=== PATIENT | female | born 1945 | race Caucasian/White ===

== ENCOUNTER 2022-03-24 07:51 | Outpatient (REF) | payer MEDICARE, SELFPAY ==
[2022-03-24 11:23] LABS: Hematocrit 39.1 % (37.0-47.0); Hemoglobin 12.8 g/dl (12.0-16.0); Mean Corpuscular HGB Conc 32.7 g/dl (31.0-35.0); Mean Corpuscular Hemoglobin 30.9 pg (27.0-33.0); Mean Corpuscular Volume 94.4 fL (80.0-98.0); Mean Platelet Volume 10.5 fL (9.4-12.3); Platelet Count 172 X10*3/uL (160-400); Red Blood Count 4.14 X10*6/uL (4.20-5.50); Red Cell Distribution Width 13.6 % (11.0-16.0)
[2022-03-24 11:38] LABS: Alanine Aminotransferase 22 U/L (0-31); Albumin Level 4.2 g/dL (3.5-5.0); Alkaline Phosphatase 78 U/L (39-117); Anion Gap 12 (12-20); Aspartate Amino Transferase 24 U/L (5-31); Bilirubin Total 0.4 mg/dL (0.0-1.0); Blood Urea Nitrogen 11 mg/dL (9-16); Calcium 10.6 mg/dL (8.4-10.2); Carbon Dioxide 30 mmol/L (22-29); Chloride 107 mmol/L (96-108); Cholesterol 171 mg/dL; Estimated Glomerular Filt Rate > 60; Glucose Random 102 mg/dL (60-115); HDL Cholesterol 48 mg/dL; LDL Cholesterol Calculated 104 mg/dl; Potassium 5.5 mmol/L (3.3-5.1); Sodium 143 mmol/L (135-145); Total Protein 6.5 g/dL (6.5-8.0); Triglycerides 96 mg/dL
[2022-03-24 11:49] LABS: WBC ABN SCTR FOR CBC 1
[2022-03-24 11:52] LABS: White Blood Count 54.9 X10*3/uL (4.8-10.8)
[2022-03-24 11:56] LABS: Band Neutrophils Percent 0 % (3-5); Lymphocytes Absolute Manual 51.1 X10*3/uL (1.2-4.9); Lymphocytes Percent Manual 93 % (20-40); Monocytes Absolute Manual 0.5 X10*3/uL (0.1-1.2); Monocytes Percent Manual 1 % (2-11); Neutrophils Absolute Manual 3.3 X10*3/uL (2.0-8.3); Neutrophils Percent Manual 6 % (45-73)
[2022-03-24 12:01] LABS: Platelet Estimate NORMAL (NORMAL); RBC Morphology NORMAL
[2022-03-24 12:02] LABS: Large Platelet PRESENT; Platelet Morphology Comment NOTED; Smudge Cells PRESENT
== END 2022-03-24 07:52 | disposition home or self-care (01) ==
LOC: HO.MANLDS 07:51
PROVIDERS: Visit Provider Physician Assistant
DX: I10 Essential (primary) hypertension (principal); E78.2 Mixed hyperlipidemia
CPT/HCPCS: 36415; 80053; 80061; 85007; 85027

== ENCOUNTER 2023-04-30 09:03 | Outpatient (REF) | payer MEDICARE, SELFPAY ==
[2023-04-30 13:54] LABS: Hematocrit 39.8 % (37.0-47.0); Hemoglobin 12.5 g/dl (12.0-16.0); Mean Corpuscular HGB Conc 31.4 g/dl (31.0-35.0); Mean Corpuscular Volume 95.4 fL (80.0-98.0); Platelet Count 171 X10*3/uL (160-400); Red Blood Count 4.17 X10*6/uL (4.20-5.50); Red Cell Distribution Width 13.5 % (11.0-16.0)
[2023-04-30 13:58] LABS: WBC ABN SCTR FOR CBC 1
[2023-04-30 14:00] LABS: White Blood Count 59.1 X10*3/uL (4.8-10.8)
[2023-04-30 14:06] LABS: Alanine Aminotransferase 17 U/L (0-31); Albumin Level 4.3 g/dL (3.5-5.0); Alkaline Phosphatase 75 U/L (39-117); Anion Gap 13 (12-20); Aspartate Amino Transferase 22 U/L (5-31); Bilirubin Total 0.4 mg/dL (0.0-1.0); Blood Urea Nitrogen 12 mg/dL (9-16); Calcium 10.7 mg/dL (8.4-10.2); Carbon Dioxide 26 mmol/L (22-29); Chloride 105 mmol/L (96-108); Cholesterol 187 mg/dL (<200); Estimated Glomerular Filt Rate > 60; Glucose Random 92 mg/dL (60-115); HDL Cholesterol 52 mg/dL (>40); LDL Cholesterol Calculated 112 mg/dL (<100); Potassium 4.1 mmol/L (3.3-5.1); Sodium 140 mmol/L (135-145); Total Protein 6.8 g/dL (6.5-8.0); Triglycerides 117 mg/dL (<150)
[2023-04-30 14:33] LABS: Folate 7.6 ng/mL (> or = 4.0); Vitamin B12 1059 pg/mL (200-900)
[2023-04-30 14:46] LABS: Band Neutrophils Percent 0 % (3-5); Eosinophils Absolute Manual 0.6 X10*3/uL (0.0-0.4); Eosinophils Percent Manual 1 % (0-4); Lymphocytes Absolute Manual 54.4 X10*3/uL (1.2-4.9); Lymphocytes Percent Manual 92 % (20-40); Monocytes Absolute Manual 0.6 X10*3/uL (0.1-1.2); Monocytes Percent Manual 1 % (2-11); Neutrophils Absolute Manual 3.5 X10*3/uL (2.0-8.3); Neutrophils Percent Manual 6 % (45-73)
[2023-04-30 14:47] LABS: Platelet Estimate NORMAL (NORMAL); Platelet Morphology Comment NORMAL; RBC Morphology NOTED
[2023-04-30 14:48] LABS: Smudge Cells PRESENT
== END 2023-04-30 09:04 | disposition home or self-care (01) ==
LOC: HO.MANLDS 09:03
PROVIDERS: Visit Provider Physician Assistant
DX: E11.9 Type 2 diabetes mellitus without complications (principal)
CPT/HCPCS: 36415; 80053; 80061; 82607; 82746; 84443; 85007; 85025; 85027